=== PATIENT | male | born 1995 | race Caucasian/White ===

== ENCOUNTER 2022-02-08 19:50 | Emergency (ER) | payer OTHER ==
[2022-02-08] MEDS ORDERED: Acetaminophen 500 MG TAB ONE (20:32)
== END 2022-02-08 20:59 | disposition home or self-care (01) ==
LOC: EDBD 19:50 → CSHERS 19:50
DX: S93.432A Sprain of tibiofibular ligament of left ankle, initial encounter (principal); X50.0XXA Overexertion from strenuous movement or load, initial encounter